=== PATIENT | female | born 1995 | race Caucasian/White ===

== ENCOUNTER 2025-09-15 09:42 | Emergency (ER) | payer OTHER ==
[2025-09-15] MEDS ORDERED: Azithromycin 250 MG TAB ONE (11:33)
== END 2025-09-15 12:00 | disposition home or self-care (01) ==
LOC: MADERS 09:42
DX: S39.011A Strain of muscle, fascia and tendon of abdomen, initial encounter (principal); J45.901 Unspecified asthma with (acute) exacerbation; J20.9 Acute bronchitis, unspecified; J02.9 Acute pharyngitis, unspecified; R11.0 Nausea; F17.290 Nicotine dependence, other tobacco product, uncomplicated; X58.XXXA Exposure to other specified factors, initial encounter
CPT/HCPCS: 87081; 87428; 87430; 96372; 99284; J1885; J2919; Q0162